=== PATIENT | male | born 1995 | race Caucasian/White ===

== ENCOUNTER 2022-04-29 05:55 | Emergency (ER) | payer OTHER ==
[~2022-04-29] VITALS: Ht 172.7 cm; Wt 75.0 kg
[2022-04-29] MEDS ORDERED: TALT80IN7 SQ (06:08)
[2022-04-29 09:11] VITALS: BP 116/72
== END 2022-04-29 09:11 | disposition home or self-care (01) ==
LOC: M ED 05:55
DX: S66.812A Strain of other specified muscles, fascia and tendons at wrist and hand level, left hand, initial encounter (principal); M79.645 Pain in left finger(s); W19.XXXA Unspecified fall, initial encounter; Z86.73 Personal history of transient ischemic attack (TIA), and cerebral infarction without residual deficits; Y92.9 Unspecified place or not applicable; Y93.9 Activity, unspecified; Y99.0 Civilian activity done for income or pay; Z79.899 Other long term (current) drug therapy